=== PATIENT | female | born 1965 | race Two or more races ===

== ENCOUNTER 2020-03-20 14:52 | Emergency (ER) | payer OTHER ==
[~2020-03-20] VITALS: Ht 160 cm; Wt 97.0 kg
[2020-03-20] MEDS ORDERED: CYM20 PO (15:08)
[2020-03-20 16:17] LABS: BASOPHILS % 0.3 % (0.0-2.0); HEMATOCRIT. 39.4 % (36.0-48.0); HEMOGLOBIN. 12.1 g/dL (12.0-16.0); LYMPHOCYTES % 12.1 % (20.0-50.0); MEAN CORPUSCULAR HEMOGLOBIN 22.3 pg (28.0-32.0); MEAN CORPUSCULAR VOLUME 72.6 fL (81.0-99.0); MEAN PLATELET VOLUME 9.9 fl (7.4-10.4); MONOCYTES % 4.5 % (2.0-8.0); NEUTROPHILS % 82.1 % (40.0-76.0); PLATELET 428 x1000/uL (130-400); RED BLOOD CELL COUNT 5.43 mill/uL (4.2-5.4); RED CELL DISTRIBUTION WIDTH 18.4 % (11.6-14.6)
[2020-03-20 16:27] LABS: CHLORIDE 102 mEq/L (98-107)
[2020-03-20 16:28] LABS: PROTHROMBIN TIME 10.4 sec (9.6-11.0)
[2020-03-20 16:30] LABS: ETHANOL BLOOD < 10 mg/dL
[2020-03-21] MEDS ORDERED: ACETAMINOPHEN 650MG/20.3ML UDC PO ONE (15:30)
[2020-03-21 16:22] LABS: *AMPHETAMINES SCREEN URINE NEGATIVE (NEGATIVE)
[2020-03-21 16:24] LABS: *BARBITURATES SCREEN URINE NEGATIVE (NEGATIVE); *BENZODIAZEPINES SCREEN URINE PRESUMTIVE POSITIVE (NEGATIVE); *COCAINE SCREEN URINE NEGATIVE (NEGATIVE); CANNABINOID URINE SCREEN NEGATIVE (NEGATIVE); METHADONE URINE SCREEN NEGATIVE (NEGATIVE); OPIATES URINE SCREEN PRESUMTIVE POSITIVE (NEGATIVE); PHENCYCLIDINE URINE SCREEN NEGATIVE (NEGATIVE)
[2020-03-21 21:55] VITALS: BP 134/81
== END 2020-03-21 22:10 ==
LOC: ER 14:52
DX: T65.91XA Toxic effect of unspecified substance, accidental (unintentional), initial encounter (principal); R45.851 Suicidal ideations; I49.9 Cardiac arrhythmia, unspecified; Z20.828 Contact with and (suspected) exposure to other viral communicable diseases; Y92.9 Unspecified place or not applicable
CPT/HCPCS: 36415; 71045; 80053; 80305; 80307; 80320; 80329; 82140; 83605; 85025; 87426; 93005; 99285; G0480